=== PATIENT | male | born 1965 | race African-American/Black ===

== ENCOUNTER 2021-01-30 20:10 | Emergency (ER) | payer SELFPAY ==
[2021-01-30 20:52] VITALS: BP 152/96; PULSE 100; TEMP 98.2; BMI 31.4
[2021-01-30 21:35] LABS: EPI CELLS 11 /uL (0-25.1); HYALINE CASTS 2 /uL (0-3.1); URINE APPEARANCE CLEAR; URINE BACTERIA >9,000 /uL (0-1359); URINE BILIRUBIN NEGATIVE (NEGATIVE); URINE COLOR YELLOW; URINE GLUCOSE (UA) 2+ (NEGATIVE); URINE KETONE TRACE (NEGATIVE); URINE LEUK ESTERASE TRACE (NEGATIVE); URINE NITRITE POSITIVE (NEGATIVE); URINE PROTEIN NEGATIVE (NEGATIVE); URINE RBC 6 /uL (0-23.9); URINE UROBILINOGEN 0.2 mg/dL (0.2-1.0); URINE WBC 64 /uL (0-25.8)
== END 2021-01-30 23:00 | disposition home or self-care (01) ==
LOC: JER 20:10
DX: N43.3 Hydrocele, unspecified (principal)
CPT/HCPCS: 76870-TC; 81003; 87086; 87186; 99284-25

== ENCOUNTER 2023-04-10 07:28 | Emergency (ER) | payer SELFPAY ==
[2023-04-10 07:33] VITALS: BP 122/76; RESP 18; TEMP 99; BMI 32.8
[2023-04-10] MEDS ORDERED: ACETAMINOPHEN 1000 MG/100 ML BAG IVPB ONE (08:10)
[2023-04-10] MEDS ORDERED: ACETAMINOPHEN 500 MG TABLET (FP) PO ONE (08:14)
[2023-04-10] MEDS ORDERED: ACETAMINOPHEN 500 MG TABLET (FP) ONE (08:30)
[2023-04-10 08:40] LABS: HEMATOCRIT 42.6 % (35.4-49); HEMOGLOBIN 14.2 GM/dL (11.7-16.9); MCH 29.4 pg (25.7-33.7); MCHC 33.3 g/dl (32.0-35.9); MEAN PLT VOLUME 8.2 fl (7.5-11.1); PLATELET COUNT 304 10^3/uL (134-434); RBC 4.84 M/mm3 (4.00-5.60); RDW 16.1 % (11.9-15.9)
[2023-04-10 08:53] LABS: POTASSIUM 3.9 mmol/L (3.5-5.1)
[2023-04-10 08:56] LABS: ALBUMIN 3.2 g/dl (3.4-5.0); BLOOD UREA NITROGEN 10.1 mg/dL (7-18)
[2023-04-10 08:57] LABS: CALCIUM 9.3 mg/dL (8.5-10.1)
[2023-04-10 08:59] LABS: CREATININE 0.9 mg/dL (0.55-1.3)
[2023-04-10 09:01] LABS: BILIRUBIN,TOTAL 0.4 mg/dL (0.2-1); TOT PROT 7.3 g/dl (6.4-8.2)
[2023-04-10 09:39] LABS: ANISOCYTOSIS 0; MACROCYTOSIS 0
[2023-04-10 09:42] LABS: EPI CELLS 5 /uL (0-25.1); HYALINE CASTS 1 /uL (0-3.1); PH,URINE 5.5 (5.0-8.0); URINE APPEARANCE CLOUDY; URINE BACTERIA >9,000 /uL (0-1359); URINE BILIRUBIN NEGATIVE (NEGATIVE); URINE COLOR YELLOW; URINE GLUCOSE (UA) NEGATIVE (NEGATIVE); URINE KETONE TRACE (NEGATIVE); URINE LEUK ESTERASE 3+ (NEGATIVE); URINE NITRITE POSITIVE (NEGATIVE); URINE PROTEIN TRACE (NEGATIVE); URINE RBC 37 /uL (0-23.9); URINE WBC 1934 /uL (0-25.8)
[2023-04-10 11:11] VITALS: PULSE 87
== END 2023-04-10 12:34 | disposition home or self-care (01) ==
LOC: JER 07:28
PROC: 3E033NZ Introduction of Analgesics, Hypnotics, Sedatives into Peripheral Vein, Percutaneous Approach (ICD-10-PCS; principal; 2023-04-10)
DX: N30.00 Acute cystitis without hematuria (principal); N45.2 Orchitis
CPT/HCPCS: 36415; 76870-TC; 80053; 81003; 85025; 87086; 87186; 87491; 87591; 99284-25